=== PATIENT | male | born 1990 | race Caucasian/White ===

== ENCOUNTER 2019-02-10 09:43 | Day surgery (SDC) | payer SELFPAY ==
[2019-02-10] VITALS (11 sets, daily range): BP systolic 103–138; BP diastolic 65–93
[~2019-02-10] VITALS: Ht 182.9 cm; Wt 72.6 kg
[2019-02-10 10:22] LABS: BASOPHILS % (AUTO) 1 % (0-10); BILIRUBIN,URINE NEGATIVE (NEGATIVE); CLARITY,URINE CLEAR; COLOR,URINE YELLOW; EOSINOPHILS # (AUTO) 0.2 10^3/uL (0.0-0.3); EOSINOPHILS % (AUTO) 2 % (0-10); GLUCOSE, URINE (UA) NEGATIVE (NEGATIVE); HEMATOCRIT 43 % (40-54); HEMOGLOBIN 14.9 G/DL (13.3-17.7); KETONES,URINE NEGATIVE (NEGATIVE); LEUKOCYTE ESTERASE ,URINE NEGATIVE (NEGATIVE); LYMPHOCYTES # (AUTO) 1.6 X 10^3 (1.0-4.0); LYMPHOCYTES % (AUTO) 21 % (12-44); MEAN CORPUSCULAR HEMOGLOBIN 30 PG (25-34); MEAN CORPUSCULAR HGB CONC 35 G/DL (32-36); MEAN CORPUSCULAR VOLUME 87 FL (80-99); MEAN PLATELET VOLUME 10.1 FL (7.4-10.4); MONOCYTES # (AUTO) 0.7 X 10^3 (0.0-1.0); MONOCYTES % (AUTO) 9 % (0-12); NEUTROPHILS # (AUTO) 5.1 X 10^3 (1.8-7.8); NEUTROPHILS % (AUTO) 68 % (42-75); NITRITE,URINE NEGATIVE (NEGATIVE); PH,URINE 7 (5-9); PLATELET COUNT 248 10^3/uL (130-400); PROTEIN,URINE NEGATIVE (NEGATIVE); RED CELL DISTRIBUTION WIDTH 13.7 % (10.0-14.5); UROBILINOGEN,URINE NORMAL (NORMAL); WHITE BLOOD COUNT 7.6 10^3/uL (4.3-11.0)
[2019-02-10 10:30] LABS: BACTERIA,URINE NEGATIVE /HPF
[2019-02-10] MEDS ORDERED: LACTATED RINGERS 1,000 ML IV ONE (10:37)
[2019-02-10 10:39] LABS: ALANINE AMINOTRANSFERASE 7 U/L (0-55); ALBUMIN 4.4 GM/DL (3.2-4.5); ALKALINE PHOSPHATASE 98 U/L (40-136); AMYLASE 58 U/L (25-125); BILIRUBIN,TOTAL 0.2 MG/DL (0.1-1.0); BUN/CREATININE RATIO 15; CALCIUM 9.2 MG/DL (8.5-10.1); CARBON DIOXIDE 23 MMOL/L (21-32); CHLORIDE 110 MMOL/L (98-107); GFR ESTIMATED > 60; GLUCOSE 77 MG/DL (70-105); LIPASE 19 U/L (8-78); SODIUM 142 MMOL/L (135-145); TOTAL PROTEIN 6.9 GM/DL (6.4-8.2)
[2019-02-10] MEDS ORDERED: PANTOPRAZOLE 40 MG (PROTONIX) VIAL IV ONE (10:45)
[2019-02-10 10:51] LABS: INR 0.9 (0.8-1.4); PROTHROMBIN TIME PATIENT 12.9 SEC (12.2-14.7)
[2019-02-10 10:52] LABS: MAGNESIUM 2.3 MG/DL (1.8-2.4)
[2019-02-10] MEDS ORDERED: HOLD METFORMIN - RECEIVED CONTRAST 20 ML VIAL IV SCH (11:00)
[2019-02-10] MEDS ORDERED: IOHEXOL 350 MG/ML 100 ML (OMNIPAQUE 350) VIAL IV ONE (11:00)
[2019-02-10] MEDS ORDERED: NS 100 ML (IVPB) BAG IV ONE (11:00)
[2019-02-10 11:23] LABS: AMPHETAMINE SCREEN, URINE NEGATIVE (NEGATIVE); BARBITURATE SCREEN URINE NEGATIVE (NEGATIVE); BENZODIAZEPINES SCREEN URINE NEGATIVE (NEGATIVE); CANNABINOID SCREEN, URINE POSITIVE (NEGATIVE); COCAINE SCREEN URINE NEGATIVE (NEGATIVE); METHADONE STAT NEGATIVE (NEGATIVE); METHAMPHETAMINE SCREEN URINE S NEGATIVE (NEGATIVE); OPIATE SCREEN URINE NEGATIVE (NEGATIVE); OXYCODONE STAT NEGATIVE (NEGATIVE); PROPOXYPHENE STAT NEGATIVE (NEGATIVE); TRICYCLIC ANTIDEPRESSANTS SCRE NEGATIVE (NEGATIVE)
--- NOTE | 2019-02-10 11:44 | Diagnostic Imaging Report ---
PROCEDURE: CT abdomen and pelvis with contrast. TECHNIQUE: Multiple contiguous axial images were obtained through the abdomen and pelvis after administration of intravenous contrast. Auto Exposure Controls were utilized during the CT exam to meet ALARA standards for radiation dose reduction. INDICATION: Abdominal pain. Findings: No comparison available. Limited views of the lower thorax are normal. Liver is normal. No focal liver lesions are seen. Gallbladder is normal. No biliary ductal dilation. Portal vein is patent. Pancreas, spleen and adrenal glands are normal. Kidneys enhance symmetrically without focal lesion. No hydronephrosis. Urinary bladder is normal. Prostate is normal. It is difficult to identify the appendix. There is a thickwalled structure in the right pelvis which does not clearly connect to other bowel loops and is thought to represent the appendix. This measures 2 cm in maximal thickness (image 76, series 2). There is an adjacent fluid collection with some peripheral rim enhancement suggestive of a developing abscess. No free air is seen. However, this constellation of findings is highly concerning for ruptured appendicitis. The small bowel is diffusely dilated and thickwalled with pseudo-feces which is favored to reflect reactive changes from the inflammatory process centered in the right lower quadrant. The abdominal aorta is normal in caliber. There is small volume free fluid in the pelvis. There are no suspicious osseous lesions. Impression: 1. Inflammatory process in the right lower quadrant adjacent to a structure thought to represent a markedly thickened appendix. There is an adjacent rim-enhancing fluid collection and small volume free fluid in the pelvis. Overall findings are highly concerning for ruptured appendicitis. Communicated to Dr. Barron by Dr. Delarosa at 1140 on 02/10/2018 Dictated by: Dictated on workstation # [id number]
--- NOTE | 2019-02-10 11:50 | Diagnostic Imaging Report ---
CLINICAL INDICATION: Patient with mid abdominal pain, anterior to posterior x1 week. Patient has nausea and vomiting. EXAMS: X-ray of the chest, PA view and x-ray of the abdomen, supine and upright views. COMPARISONS: CT scan of the abdomen and pelvis dated 02/10/2019. FINDINGS: LUNGS/ PLEURA: Lungs are clear. There is no pneumothorax. There is no pleural effusion. MEDIASTINUM: Unremarkable. PULMONARY VASCULATURE: Unremarkable. HEART: Unremarkable. BONES/ EXTRATHORACIC SOFT TISSUE: There is left curvature of the thoracic spine. ABDOMEN AND PELVIS: There is a distended loop of colon overlying the mid abdominal and pelvis region with air-fluid levels. The air-filled loop of colon measures 4.8 cm in width. This was also noted on comparison CT scan of abdomen and pelvis. There is no evidence of abdominal free air. There is excreted contrast seen within the right renal collecting system and bladder. There are no focal calcifications overlying the expected regions/ pathways of both kidneys, ureters, and bladder regions. IMPRESSION: 1: There is air-distended loop of colon with multiple air-fluid levels seen which may be related to ileus or low colonic obstruction. This is better evaluated with CT scan. 2: There is no radiographic evidence of acute cardiopulmonary process. Dictated by: Dictated on workstation # [id number]
[2019-02-10] MEDS ORDERED: PIPERACILLIN/TAZOBACTAM (BULK) 4.5 GM in NS (IVPB) 100 ML IV ONE (12:00)
--- NOTE | 2019-02-10 12:52 | Consultation (Surgery) ---
History of Present Illness History of Present Illness Patient Consulted On(nirmal/time) 02/10/19 12:46 Time Seen by Provider: 11:59 History of Present Illness Surgery asked to consult regarding RLQ pain and possible appendicitis. Pt is a 28 yo male who states he had abdominal pain that started last Wednesday, around the umbilicus and kind of spread out diffusely. He states that he vomited on the first day and had diarrhea for the first 3 days; so he thought he just had "stomach virus". He states the only thing was that the pain never went away and in fact started getting worse. He rated it as a 10 out of 10, worse with any movement and walking. Now most of the pain is in the right lower quadrant. He describes a sharp stabbing pain that is constant. Nothing makes pain better except laying still and he was not hungry this am. He has been a little constipated. Allergies and Home Medications Allergies Coded Allergies: No Known Drug Allergies (Unverified , 02/10/19) Home Medications No Active Prescriptions or Reported Meds Patient Home Medication List Home Medication List Reviewed: Yes Past Dumhfde-Mhnfsa-Gqsfbi Hx Patient Social History Alcohol Use: Rarely Uses Recreational Drug Use: Yes Drug of Choice: marijuana Smoking Status: Current Everyday Smoker Type Used: Cigarettes Recent Foreign Travel: No Contact w/Someone Who Travel: No Recent Infectious Disease Expo: No Surgeries History of Surgeries: No Respiratory History of Respiratory Disorde: No Cardiovascular History of Cardiac Disorders: No Neurological History of Neurological Disord: Yes (hx of seixure x 3 not diagnosed with epilepsy or on meds.) Genitourinary History of Genitourinary Disor: No Gastrointestinal History of Gastrointestinal Di: No Musculoskeletal History of Musculoskeletal Dis: No Endocrine History of Endocrine Disorders: No HEENT History of HEENT Disorders: No Cancer History of Cancer: No Psychosocial History of Psychiatric Problem: Yes Behavioral Health Disorders: Bipolar Integumentary History of Skin or Integumenta: No Blood Transfusions History of Blood Disorders: No Family Medical History Significant Family History: Diabetes (mother), Hypertension (mother) Review of Systems-General Constitutional: No chills, No diaphoresis; malaise, weakness EENTM: No blurred vision, No double vision, No mouth pain, No mouth swelling, No throat pain Respiratory: No cough, No dyspnea on exertion Cardiovascular: No chest pain, No edema, No palpitations Gastrointestinal: abdominal pain, constipation; No hematemesis, No jaundice; nausea, vomiting Genitourinary: No dysuria, No frequency, No hematuria Musculoskeletal: No joint pain, No joint swelling, No muscle pain, No muscle stiffness Skin: No change in color, No change in hair/nails Psychiatric/Neurological: Anxiety, Depressed; Denies Pre-Existing Deficit, Denies Tremors Other pt denies any abnormal bleeding or bruising, no heat or cold intolerance Physical Exam-General Problems Physical Exam Vital Signs Vital Signs - First Documented 02/10/19 10:15 Temp 97.0 Pulse 71 Resp 20 B/P (MAP) 123/74 (90) Pulse Ox 100 Capillary Refill : Less Than 3 Seconds General Appearance: WD/WN, mild distress Eyes: Bilateral Eye PERRL, Bilateral Eye EOMI HEENT: pharynx normal; No scleral icterus (R), No scleral icterus (L) Neck: non-tender, full range of motion, supple, normal inspection Respiratory: chest non-tender, lungs clear, normal breath sounds, no respirator y distress, no accessory muscle use Cardiovascular: regular rate, rhythm, no edema, no murmur Gastrointestinal: no organomegaly, guarding, rebound, tenderness (diffusely, but most in RLQ and when you press other quadrants it hurts there and RLQ), hernia (small umbilical) Rectal: deferred Back: normal inspection, no CVA tenderness, no vertebral tenderness Extremities: normal range of motion, non-tender, normal inspection, no pedal edema, no calf tenderness Neurologic/Psychiatric: medical coder II-XII nml as tested, no motor/sensory deficits, alert, normal mood/affect, oriented x 3 Skin: normal color, warm/dry, tattoos/piercings (multiple) Lymphatic: no adenopathy (neck, axilla or groin) Data Review Labs Laboratory Tests 02/10/19 10:13: White Blood Count 7.6, Red Blood Count 4.92, Hemoglobin 14.9, Hematocrit 43, Mean Corpuscular Volume 87, Mean Corpuscular Hemoglobin 30, Mean Corpuscular Hemoglobin Concent 35, Red Cell Distribution Width 13.7, Platelet Count 248, Mean Platelet Volume 10.1, Neutrophils (%) (Auto) 68, Lymphocytes (%) (Auto) 21, Monocytes (%) (Auto) 9, Eosinophils (%) (Auto) 2, Basophils (%) (Auto) 1, Neutrophils # (Auto) 5.1, Lymphocytes # (Auto) 1.6, Monocytes # (Auto) 0.7, Eosinophils # (Auto) 0.2, Basophils # (Auto) 0.0, Prothrombin Time 12.9, INR Comment 0.9, Activated Partial Thromboplast Time 29, Urine Color YELLOW, Urine Clarity CLEAR, Urine pH 7, Urine Specific [place] 1.010L, Urine Protein NEGATIVE, Urine Glucose (UA) NEGATIVE, Urine Ketones NEGATIVE, Urine Nitrite NEGATIVE, Urine Bilirubin NEGATIVE, Urine Urobilinogen NORMAL, Urine Leukocyte Esterase NEGATIVE, Urine RBC (Auto) NEGATIVE, Urine RBC NONE, Urine WBC NONE, Urine Squamous Epithelial Cells NONE, Urine Crystals NONE, Urine Bacteria NEGATIVE, Urine Casts NONE, Urine Mucus NEGATIVE, Urine Culture Indicated NO, Sodium Level 142, Potassium Level 4.0, Chloride Level 110H, Carbon Dioxide Level 23, Anion Gap 9, Blood Urea Nitrogen 12, Creatinine 0.80, Estimat Glomerular Filtration Rate > 60, BUN/Creatinine Ratio 15, Glucose Level 77, Calcium Level 9.2, Corrected Calcium 8.9, Magnesium Level 2.3, Total Bilirubin 0.2, Aspartate Amino Transf (AST/SGOT) 17, Alanine Aminotransferase (ALT/SGPT) 7, Alkaline Phosphatase 98, Total Protein 6.9, Albumin 4.4, Amylase Level 58, Lipase 19, Urine Opiates Screen NEGATIVE, Urine Oxycodone Screen NEGATIVE, Urine Methadone Screen NEGATIVE, Urine Propoxyphene Screen NEGATIVE, Urine Barbiturates Screen NEGATIVE, Ur Tricyclic Antidepressants Screen NEGATIVE, Urine Phencyclidine Screen NEGATIVE, Urine Amphetamines Screen NEGATIVE, Urine Methamphetamines Screen NEGATIVE, Urine Benzodiazepines Screen NEGATIVE, Urine Cocaine Screen NEGATIVE, Urine Cannabinoids Screen POSITIVEH, Serum Alcohol < 10 Assessment/Plan Assessment/Plan Assessment/Plan Acute Appendicitis, possibly ruptured Plan is NPO, IV fluids, IV ABX, pain control and anti-emetics; will take to OR for Laparoscopic Appendectomy possible open. Discussed the procedure with pt; including risks and complications not limited to pain, bleeding, infection, scar, damage to bowel and need for further procedure. All questions answered to his and his family's satisfaction. KVNG JOEL DO Feb 10, 2019 12:52
[2019-02-10] MEDS ORDERED: SEVOFLURANE (ULTANE) 15 ML INHAL SOLN ONE ×4 (13:12→14:27)
[2019-02-10] MEDS ORDERED: proPOfol 200 MG/20 ML (DIPRIVAN) VIAL IV ONE (13:12)
[2019-02-10] MEDS ORDERED: LIDOCAINE PF 2% 5 ML (XYLOCAINE) VIAL ONE (13:12)
[2019-02-10] MEDS ORDERED: MIDAZOLAM 2 MG/2 ML (VERSED) VIAL ONE (13:12)
[2019-02-10] MEDS ORDERED: fentaNYL INJECTION 100 MCG/2 ML AMP ONE (13:12)
[2019-02-10] MEDS ORDERED: BUP/EPI 0.5% 1:200,000 (SENSORCAINE) 30 ML VIAL ONE (13:19)
[2019-02-10] MEDS: LACTATED RINGERS 1,000 ML IV PRN ×2 (13:27→14:05)
[2019-02-10] MEDS ORDERED: GLYCOPYRROLATE 0.2 MG/ML (ROBINUL) 2 ML VIAL ONE (14:14)
[2019-02-10] MEDS ORDERED: NEOSTIGMINE 3 MG/3 ML VIAL ONE (14:14)
[2019-02-10] MEDS ORDERED: ROCURONIUM 10 MG/ML 5 ML SYRINGE IV ONE (14:14)
[2019-02-10] MEDS ORDERED: morphine INJ 10 MG/ML 1ML (SYR OR VIAL) ONE (14:15)
[2019-02-10] MEDS ORDERED: HYDROmorphone 2 MG/ML VIAL (DILAUDID) ONE (14:27)
[2019-02-10] MEDS ORDERED: ONDANSETRON 4 MG/2 ML (SDV) Z0FRAN ONE (14:27)
[2019-02-10] MEDS ORDERED: ACHD5005 PO (14:30)
--- NOTE | 2019-02-10 14:30 | Progress Note-Post Operative ---
Post-Operative Progess Note Surgeon (s)/Civil Engineering Draftsperson (s) Surgeon KVNG JOEL DO Civil Engineering Draftsperson: none Pre-Operative Diagnosis Acute Appendicitis, possibly ruptured Post-Operative Diagnosis Acute Appendicitis Mesenteric Lymphadenitis Left Indirect Inguinal Hernia Procedure & Operative Findings Date of Procedure 02/10/19 Procedure Performed/Findings Lap Appy Anesthesia Type GET Estimated Blood Loss Estimated blood loss (mL): scant Specimens/Packing Specimens Removed KVNG Paez DO Feb 10, 2019 14:29
--- NOTE | 2019-02-10 14:32 | Discharge Inst-Surgical ---
Discharge Inst-Surgical Depart Medication/Instructions New, Converted or Re-Newed RX: RX Given to Pt/Family Patient Instructions Follow up Appt: Make appointment for 1 week. [phone] Instructions: No lifting greater than 20 pounds. No strenuous activity. May shower in 24 hours, no tub bath or soaking. Use incentive spirometer at home as directed. No Smoking Skin/Wound Care: May remove bandages in am. You need to leave the Dermabond on incision it will fall off on it's own. Symptoms to Report: Appetite Changes, Extremity Discoloration, Numbness/Tingling, Swelling Increased, Bleeding Excessive, Eyesight Changes, Pain Increased, Urine Color Change, Constipation(Persistent), Fever over 101 degree F, Pain/Pressure in chest, Urinating Difficulty, Cough Up/Vomit Blood, Heart Beat Irreg/Pounding, Pain/Pressure in jaw, Cramps in feet or legs, Lightheadedness, Pain/Pressure in shoulder, Diarrhea(Persistent), Memory Changes Suddenly, Questions/Concerns, Weight gain consecutive days, Dizziness/Fainting, Nausea/Vomiting, Shortness of Breath, Weight gain over 2 pounds If questions or concerns contact your physician Or seek help at emergency department. Activity Activity as Tolerated: Yes Activity Instructions: Avoid Stress to Incision Driving Instructions: No Driving/Refer to Dr. East Discharge Diet: No Restrictions Diet After 24 Hours: Clear Liquid if Nauseous If Any Problems/Questions/Issu: Contact Your Physician, Go to Emergency Room Skin/Wound Care Infection Signs and Symptoms: Increased Redness, Foul Odor of Wound, Increased Drainage, Skin Itchy or Has a Rash, Increased Swelling, Temperature Above 101 F Wound Care Comment: Heating pad to shoulder or neck tonight for pain Bathing Instructions: Shower Stitches/Eboni/Dermabond Dis: Dermabond Ice Pack: Ice On and Off Site (as needed for pain at incisions) KVNG JOEL DO Feb 10, 2019 14:31
--- NOTE | 2019-02-10 14:34 | Anesthesia-General Post-Op ---
General Patient Condition Mental Status/LOC: Same as Preop Cardiovascular: Satisfactory Nausea/Vomiting: Absent Respiratory: Satisfactory Pain: Controlled Complications: Absent Post Op Complications Complications None Follow Up Care/Instructions Patient Instructions None needed. Anesthesia/Patient Condition Patient Condition Patient is doing well, no complaints, stable vital signs, no apparent adverse anesthesia problems. No complications reported per nursing. GREGORIO ASH CRNA Feb 10, 2019 14:34
--- NOTE | 2019-02-11 00:25 | OPERATIVE REPORT ---
DATE OF SERVICE: PREOPERATIVE DIAGNOSIS: Acute possibly ruptured appendicitis. POSTOPERATIVE DIAGNOSES: 1. Acute appendicitis. 2. Mesenteric lymphadenitis. 3. Left indirect inguinal hernia. PROCEDURE: Laparoscopic appendectomy. SURGEON: Yasir Salazar DO PLUCK TRIMMER: None. ANESTHESIA: General endotracheal tube. SPECIMEN: Appendix. BLOOD LOSS: Scant. FLUIDS: Per anesthesia. POSTOPERATIVE CONDITION: Stable. INDICATION FOR PROCEDURE: The patient is a 28-year-old male who has been having pain for about a week all over the abdomen, mostly in the right lower quadrant, had some peritoneal signs in the ER and a CAT scan was read as acute appendicitis, possibly ruptured. FINDINGS: The patient had actually mildly distended tip with some erythema that looked like it might have been an acute appendicitis, but it was definitely not ruptured and not as enlarged as a stated. There was a minimal fluid in the pelvis, but no abscess seen, did note some mesenteric lymphadenitis. PROCEDURE NOTE: After informed consent was obtained, the patient was brought to the operating room, placed on the operating table in supine position. He was sterilely prepped and draped in normal fashion. Local lidocaine was used to infiltrate the skin above the umbilicus. I made the incision with #11 blade, carried down through the skin into subcutaneous tissue, then deepened down to subcutaneous tissue with Bovie electrocautery down to the fascia. Fascia was incised with Bovie electrocautery and bluntly entered abdomen, swept the finger around, placed 0 Vicryl [id number] suture, then placed 11 mm trocar port under direct visualization, created pneumoperitoneum and placed 2 more ports in normal fashion using local lidocaine, 11 blade for stab incision and the VersaStep system, all done under direct visualization, one suprapubically and one in the left lower quadrant. The patient was then placed slightly Trendelenburg and rotated to the left. The small bowel was very distended, able to visualize the cecum and then followed this down to the appendix, appendix near the cecum looked pretty normal, but it was a little bit distended, maybe a little bit red at the tip. Able to grasp the appendix and then come under the appendix bluntly right through the mesentery at the cecum. Switched to 5 mm camera and then placed an Endo-DENNYS into the abdomen across the base of the appendix, clamped and fired, thereby transecting it and then using LigaSure coming across the mesoappendix clamping and coagulating and transecting in this fashion coming across through a stepwise fashion. Completely removing the appendix and coming through the appendiceal artery. Once this was done put a bag in the abdomen, placed the appendix in the bag and then removed this through the supraumbilical port placed grasper back in and decided to start running the small intestine making sure it did not miss the Meckel's ran the small intestine care home through and did not see any Meckel's diverticulum was a mildly dilated. I did see some mesenteric lymphadenitis and took a picture of this while looking down low in the pelvis and looked in left indirect inguinal hernia, took a picture of this and then looked around, did not see any obvious pathology, there was a little bit of fluid in the pelvis, but this appeared normal. At this point, then elected to place the patient in supine, removed all ports under direct visualization and allowed pneumoperitoneum to escape. Closed the supraumbilical incision, closing the fascia with 0 Vicryl suture previously placed, copiously irrigated all incisions with normal saline, closing the 2 small 5 mm incisions with a single interrupted 4-0 undyed Monocryl subcuticular stitch, closed the supraumbilical incision with 3 interrupted 4-0 undyed Monocryl subcuticular stitches. Area was cleaned and dried and Dermabond placed and then Band-Aids. The patient tolerated the procedure. He right now still in the operating room, but he is doing nicely. He will be sent to the recovery room. Sponge, instrument and needle counts correct at the end of the case. Job ID: [id number] DocumentID: [id number] Dictated Date: 02/10/2019 14:24:11 Lead Burner Helper Date: 02/11/2019 00:24:58 Dictated By: DO SIMON CONNER
--- NOTE | 2019-02-11 06:06 | ED Abdominal Pain ---
General Chief Complaint: Abdominal/GI Problems Stated Complaint: APPENDECTOMY Nursing Triage Note: pt presents to ed with complaints of medial adominal pain that radiates to the r side of his back. pt reports pain x 1 week. pt reports when s/s first started he had a couple episodes of n/v/d Sepsis Screen: No Definite Risk Source of Information: Patient History of Present Illness Date Seen by Provider: Feb 10, 2019 Time Seen by Provider: 10:17 Initial Comments PT ARRIVES VIA POV FROM HOME C/O ABDOMINAL PAIN X 1 WEEK, GRADUALLY GETTING WORSE DENIES RADIATION OF PAIN TO ME HAD NAUSEA AND VOMITED ON THE FIRST DAY, AND HAD DIARRHEA FOR 4 DAYS, NOW BM'S ARE NORMAL, AND LAST BM WAS THIS AM EATING NORMALLY NOW. LAST MEAL WAS AT 2230 LAST PM NO FEVER NOTHING WORSENS OR IMPROVES PAIN HAS NOT TAKEN ANYTHING FOR PAIN HAS NOT SOUGHT CARE UNTIL TODAY NO HISTORY OF SIMILAR NO PRIOR ABDOMINAL SURGERIES PCP: GUILLERMO --HAS BEEN THERE A COUPLE OF TIMES, BUT DOES NOT GO TO DR ON A REGULAR BASIS Allergies and Home Medications Allergies Coded Allergies: No Known Drug Allergies (Unverified , 02/10/19) Home Medications Hydrocodone Bit/Acetaminophen 1 Tab Tab, 1 TAB PO Q6H PRN for PAIN-MODERATE Prescribed by: KVNG JOEL on 02/10/19 1430 Patient Home Medication List Home Medication List Reviewed: Yes Review of Systems Review of Systems Constitutional: no symptoms reported; No chills, No diaphoresis, No dizziness, No fever EENTM: No Symptoms Reported Respiratory: No Symptoms Reported Cardiovascular: No Symptoms Reported Gastrointestinal: See HPI, Abdominal Pain, Diarrhea, Nausea, Vomiting Genitourinary: No Symptoms Reported Musculoskeletal: no symptoms reported Skin: no symptoms reported Psychiatric/Neurological: No Symptoms Reported Endocrine: No Symptoms Reported Hematologic/Lymphatic: No Symptoms Reported Past [id number] Hx Patient Social History Alcohol Use: Rarely Uses (STATES HE DRANK HEAVILY FROM AGE [age], NOW RARELY DRINKS) Recreational Drug Use: Yes Drug of Choice: marijuana Smoking Status: Current Everyday Smoker (1 PPD) Type Used: Cigarettes (1 PPD) Recent Foreign Travel: No Contact w/Someone Who Travel: No Recent Infectious Disease Expo: No Physical Abuse: No Sexual Abuse: No Mistreated: No Fear: No Past Medical History Surgeries: No Respiratory: No Cardiac: No Neurological: Yes (hx of seixure x 3 not diagnosed with epilepsy or on meds. HAD 3 SEIZURES IN 1 WEEK, NONE BEFORE OR SINCE. WAS TOLD IT WAS DUE TO "STRESS") Genitourinary: No Gastrointestinal: No Musculoskeletal: No Endocrine: No HEENT: No Cancer: No Psychosocial: Yes Pseudo Seizures, Bipolar Integumentary: No Blood Disorders: No Family Medical History Diabetes (mother), Hypertension (mother) Physical Exam Vital Signs Vital Signs - First Documented 02/10/19 10:15 Temp 97.0 Pulse 71 Resp 20 B/P (MAP) 123/74 (90) Pulse Ox 100 Capillary Refill : Less Than 3 SecondsLess Than 3 Seconds Height/Weight/BMI Height: 6'" Weight: 160lbs. oz. 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 PIERCINGS) Progress/Results/Core Measures Results/Orders Lab Results Laboratory Tests Test 02/10/19 10:13 Range/Units White Blood Count 7.6 4.3-11.0 10^3/uL Red Blood Count 4.92 4.35-5.85 10^6/uL Hemoglobin 14.9 13.3-17.7 G/DL Hematocrit 43 40-54 % Mean Corpuscular Volume 87 80-99 FL Mean Corpuscular Hemoglobin 30 25-34 PG Mean Corpuscular Hemoglobin Concent 35 32-36 G/DL Red Cell Distribution Width 13.7 10.0-14.5 % Platelet Count 248 130-400 10^3/uL Mean Platelet Volume 10.1 7.4-10.4 FL Neutrophils (%) (Auto) 68 42-75 % Lymphocytes (%) (Auto) 21 12-44 % Monocytes (%) (Auto) 9 0-12 % Eosinophils (%) (Auto) 2 0-10 % Basophils (%) (Auto) 1 0-10 % Neutrophils # (Auto) 5.1 1.8-7.8 X 10^3 Lymphocytes # (Auto) 1.6 1.0-4.0 X 10^3 Monocytes # (Auto) 0.7 0.0-1.0 X 10^3 Eosinophils # (Auto) 0.2 0.0-0.3 10^3/uL Basophils # (Auto) 0.0 0.0-0.1 10^3/uL Prothrombin Time 12.9 12.2-14.7 SEC INR Comment 0.9 0.8-1.4 Activated Partial Thromboplast Time 29 24-35 SEC Urine Color YELLOW Urine Clarity CLEAR Urine pH 7 5-9 Urine Specific [place] 1.010 L 1.016-1.022 Urine Protein NEGATIVE NEGATIVE Urine Glucose (UA) NEGATIVE NEGATIVE Urine Ketones NEGATIVE NEGATIVE Urine Nitrite NEGATIVE NEGATIVE Urine Bilirubin NEGATIVE NEGATIVE Urine Urobilinogen NORMAL NORMAL MG/DL Urine Leukocyte Esterase NEGATIVE NEGATIVE Urine RBC (Auto) NEGATIVE NEGATIVE Urine RBC NONE /HPF Urine WBC NONE /HPF Urine Squamous Epithelial Cells NONE /HPF Urine Crystals NONE /LPF Urine Bacteria NEGATIVE /HPF Urine Casts NONE /LPF Urine Mucus NEGATIVE /LPF Urine Culture Indicated NO Sodium Level 142 135-145 MMOL/L Potassium Level 4.0 3.6-5.0 MMOL/L Chloride Level 110 H 98-107 MMOL/L Carbon Dioxide Level 23 21-32 MMOL/L Anion Gap 9 5-14 MMOL/L Blood Urea Nitrogen 12 7-18 MG/DL Creatinine 0.80 0.60-1.30 MG/DL Estimat Glomerular Filtration Rate > 60 BUN/Creatinine Ratio 15 Glucose Level 77 70-105 MG/DL Calcium Level 9.2 8.5-10.1 MG/DL Corrected Calcium 8.9 8.5-10.1 MG/DL Magnesium Level 2.3 1.8-2.4 MG/DL Total Bilirubin 0.2 0.1-1.0 MG/DL Aspartate Amino Transf (AST/SGOT) 17 5-34 U/L Alanine Aminotransferase (ALT/SGPT) 7 0-55 U/L Alkaline Phosphatase 98 40-136 U/L Total Protein 6.9 6.4-8.2 GM/DL Albumin 4.4 3.2-4.5 GM/DL Amylase Level 58 25-125 U/L Lipase 19 8-78 U/L Urine Opiates Screen NEGATIVE NEGATIVE Urine Oxycodone Screen NEGATIVE NEGATIVE Urine Methadone Screen NEGATIVE NEGATIVE Urine Propoxyphene Screen NEGATIVE NEGATIVE Urine Barbiturates Screen NEGATIVE NEGATIVE Ur Tricyclic Antidepressants Screen NEGATIVE NEGATIVE Urine Phencyclidine Screen NEGATIVE NEGATIVE Urine Amphetamines Screen NEGATIVE NEGATIVE Urine Methamphetamines Screen NEGATIVE NEGATIVE Urine Benzodiazepines Screen NEGATIVE NEGATIVE Urine Cocaine Screen NEGATIVE NEGATIVE Urine Cannabinoids Screen POSITIVE H NEGATIVE Serum Alcohol < 10 <10 MG/DL My Orders Orders - SHARIF CARRANZA DO Ed Iv/Invasive Line Start (02/10/19 10:17) Amylase (02/10/19 10:17) Cbc With Automated Diff (02/10/19 10:17) Comprehensive Metabolic Panel (02/10/19 10:17) Lipase (02/10/19 10:17) Ua Culture If Indicated (02/10/19 10:17) Alcohol (02/10/19 10:37) Drug Screen Stat (Urine) (02/10/19 10:37) Magnesium (02/10/19 10:37) Protime With Inr (02/10/19 10:37) Partial Thromboplastin Time (02/10/19 10:37) Ed Iv/Invasive Line Start (02/10/19 10:37) Lactated Ringers (Lr 1000 Ml Iv Solution (02/10/19 10:37) Pantoprazole Injection (Protonix Injecti (02/10/19 10:45) Ct Abdomen/Pelvis W (02/10/19 10:55) Acute Abd Series (02/10/19 10:55) Iohexol Injection (Omnipaque 350 Mg/Ml 1 (02/10/19 11:00) Received Contrast (Hold Metformin- Contr (02/10/19 11:00) Ns (Ivpb) (Sodium Chloride 0.9% Ivpb Bag (02/10/19 11:00) Piperacillin/Tazobactam (Bulk) (Zosyn In (02/10/19 12:00) Vital Signs/I&O 02/10/19 10:15 Temp 97.0 Pulse 71 Resp 20 B/P (MAP) 123/74 (90) Pulse Ox 100 Blood Pressure Mean: 93 Progress Progress Note : Progress Note NO DETERIORATION IN CONDITION DURING ER STAY Diagnostic Imaging Comments ABDOMEN XRAYS--NO ACUTE PROCESS CT ABDOMEN/PELVIS--+ APPENDICITIS WITH RUPTURE AND EARLY ABSCESS, PER RADIOLOGIST VIA PHONE AT 1138 Reviewed: Reviewed by Me, Discussed w/Radiologist Departure Communication (Admissions) 1143--SPOKE WITH DR. JOEL, WILL BE DOWN TO SEE PT 1155--DR. JOEL HERE, CARE TURNED OVER TO HIM Impression Primary Impression: Appendicitis Disposition: ADMITTED INPATIENT (TO OR) Condition: Stable Admissions Decision to Admit Reason: Admit from ER (General) (TO SURGERY) Decision to Admit/Date: Feb 10, 2019 Time/Decision to Admit Time: 11:45 Departure-Patient Inst. Referrals: CLAUDINE HOLGUIN MD (Family) Primary Care Physician NO,LOCAL PHYSICIAN (PCP) Primary Care Physician Patient Instructions: ANESTHESIA INSTRUCTIONS POSTOP, Appendectomy, Laparoscopic Surgery (DC), Mesenteric Lymphadenitis (DC) Scripts Hydrocodone Bit/Acetaminophen (Hydrocodone/Acetaminophen 5/325mg Tablet) 1 Tab Tab 1 TAB PO Q6H PRN for PAIN-MODERATE MDD 10, #20 TAB Prov: KVNG JOEL DO 02/10/19 SHARIF CARRANZA DO Feb 11, 2019 06:06
== END 2019-02-10 16:35 | disposition home or self-care (01) ==
LOC: EDUNIT# 09:43 → ER 09:44 → SDC 12:31
PROVIDERS: ATTEND Surgery
DX: K35.80 Unspecified acute appendicitis (principal); I88.0 Nonspecific mesenteric lymphadenitis; K40.90 Unilateral inguinal hernia, without obstruction or gangrene, not specified as recurrent; F31.9 Bipolar disorder, unspecified; R56.9 Unspecified convulsions; F17.210 Nicotine dependence, cigarettes, uncomplicated
CPT/HCPCS: 36415; 74022; 74177; 80053; 80306; 80320; 81000; 82150; 83690; 83735; 85025; 85610; 85730